=== PATIENT | male | born 1985 | race Caucasian/White ===

== ENCOUNTER → 2019-02-16 | Emergency (ER) | payer BC ==
[~2019-02-16] VITALS: Ht 172.7 cm; Wt 129.0 kg
[~2019-02-16] MED LIST: ALBU8HFA PO; AZIT250T PO; CEPH-572 PO; CYCL-1 PO; FLO0.4C PO; HYDR-3972 PO; LIDOcaine 1% 30ml preserv. free vial IJ ONE; NO HOME MEDS; ONDA4TAB6 PO; POLOS OP; TAMS0.4C32; TETanus/Pertussis (Acell)/Diphther VAC/PF (Tdap-Adult) 0.5ml syringe IM ONE; TRAM50TA2 PO
[2019-02-16 09:24] VITALS: BP 158/90
== END | disposition home or self-care (01) ==
LOC: ER 09:00
DX: S61.211A Laceration without foreign body of left index finger without damage to nail, initial encounter (principal); K21.9 Gastro-esophageal reflux disease without esophagitis; F12.90 Cannabis use, unspecified, uncomplicated; Z87.442 Personal history of urinary calculi; Z79.899 Other long term (current) drug therapy; W27.8XXA Contact with other nonpowered hand tool, initial encounter; Y93.89 Activity, other specified; Y92.89 Other specified places as the place of occurrence of the external cause; Y99.8 Other external cause status
CPT/HCPCS: 29130; 73140; 90471; 90715; 99283; J3490

== ENCOUNTER 2019-07-29 19:49 | Emergency (ER) | payer BC ==
[~2019-07-29] VITALS: Ht 167.6 cm; Wt 103.4 kg
[~2019-07-29 19:49] MED LIST changes: -CEPH-572 PO; -LIDOcaine 1% 30ml preserv. free vial IJ ONE; -TETanus/Pertussis (Acell)/Diphther VAC/PF (Tdap-Adult) 0.5ml syringe IM ONE; -TRAM50TA2 PO
[2019-07-29 19:56] VITALS: BP 170/102
[2019-07-29] MEDS ORDERED: morphine 4 MG/ML inj SYRINge IV PRN (20:20)
[2019-07-29] MEDS ORDERED: normal saline 1000ML IV soln IVB ONE (20:20)
[2019-07-29] MEDS ORDERED: ondansetron/PF 4mg/2ml inj IV ONE (20:20)
[2019-07-29] MEDS ORDERED: ketorolac trometh. 30mg/ml inj. IV ONE (20:20)
[2019-07-29 20:33] LABS: COLOR,URINE YELLOW (Yellow); GLUCOSE, URINE NEGATIVE (Neg); KETONES,URINE NEGATIVE (Neg); LEUKOCYTE ESTERASE ,URINE NEGATIVE (Neg); NITRITES, URINE NEGATIVE (Neg); OCCULT BLOOD,URINE LARGE (Neg); PH,URINE 8.5 (4.8-8.0); PROTEIN,URINE TRACE mg/dl (Neg); UROBILINOGEN,URINE 0.2 E.U/dL (0.2-1.0)
[2019-07-29 20:34] LABS: CLARITY,URINE SLIGHTLY CLOUDY (Clear); UA COLLECTION TYPE CLN CATCH MIDSTREAM
[2019-07-29 20:41] LABS: BASOPHILS # (AUTO) 0.1 X10'3 (0-0.2); BASOPHILS % (AUTO) 0.9 % (0-1); EOSINOPHILS # (AUTO) 0.2 X10'3 (0-0.9); EOSINOPHILS % (AUTO) 1.2 % (0-6); HEMOGLOBIN 13.7 g/dl (14.0-17.9); LYMPHOCYTES # (AUTO) 3.5 X10'3 (1.1-4.8); MEAN CORPUSCULAR HEMOGLOBIN 23.8 PG (27.0-31.0); MEAN CORPUSCULAR HGB CONC 32.6 g/dL (33.0-36.5); MEAN CORPUSCULAR VOLUME 73.1 FL (78-98); MEAN PLATELET VOLUME 7.9 FL (7.4-10.4); MONOCYTES # (AUTO) 0.9 X10'3 (0-0.9); MONOCYTES % (AUTO) 7.3 % (2-12); NEUTROPHILS # (AUTO) 7.9 X10'3 (1.8-7.7); NEUTROPHILS % (AUTO) 62.6 % (42-75); PLATELET COUNT 289 X10'3 (140-440); RED BLOOD COUNT 5.74 X10'6 (4.70-6.10); RED CELL DISTRIBUTION WIDTH 14.6 % (11.5-14.5); WHITE BLOOD COUNT 12.6 X10'3 (4.5-11.0)
[2019-07-29 20:43] LABS: BACTERIA,URINE NONE SEEN /HPF (Neg); RBC,URINE 20-50 /HPF (0-2); WBC,URINE 0-4 /HPF (0-4)
[2019-07-29 20:44] LABS: ALANINE AMINOTRANSFERASE 45 U/L (12-78); ALBUMIN 3.6 G/DL (3.4-5.0); ALBUMIN/GLOBULIN RATIO 1.1 (1.1-1.5); ALKALINE PHOSPHATASE 65 IU/L (46-116); ANION GAP 9 (8-16); ASPARTATE AMINO TRANSFERASE 20 U/L (10-37); BILIRUBIN,TOTAL 0.6 MG/DL (0.1-1.0); BLOOD UREA NITROGEN 13 MG/DL (7-18); BUN/CREATININE RATIO 9.9 (5.4-32.0); CALCIUM 8.6 MG/DL (8.5-10.1); CHLORIDE 106 MMOL/L (99-107); CREATININE 1.31 MG/DL (0.60-1.10); GLUCOSE 123 MG/DL (70-104); LIPASE 102 U/L (73-393); POTASSIUM 3.8 MMOL/L (3.5-5.1); SODIUM 139 MMOL/L (135-145); TOTAL CARBON DIOXIDE 23.6 MMOL/L (24-32); TOTAL PROTEIN 6.9 G/DL (6.4-8.2); eGFR 63 ML/MIN
[2019-07-29 20:44] LABS: MUCUS STRANDS MODERATE /LPF (Neg); SQUAMOUS EPITHELIAL CELL,UR NONE SEEN /LPF (FEW)
[2019-07-29] MEDS ORDERED: ONDA4TAB6 PO (22:46)
[2019-07-29] MEDS ORDERED: HYDR-4353 PO (22:46)
[2019-07-29] MEDS ORDERED: IBUP-1986 PO (22:47)
[2019-07-29] MEDS ORDERED: HYDROcodone/acetaminophen 10/325mg tab PO ONE (22:50)
[2019-07-29] MEDS ORDERED: sucralfate 1gm/10ml UD suspension PO STA (22:53)
[2019-07-29] MEDS ORDERED: mag hydrox/Alum hydrox/simeth 30ml oral suspension PO ONE (22:55)
[2019-07-29] MEDS ORDERED: LIDOcaine Viscous 15ml cup PO ONE (22:55)
== END 2019-07-29 23:11 | disposition home or self-care (01) ==
LOC: ER 19:50
DX: N13.2 Hydronephrosis with renal and ureteral calculous obstruction (principal); R42 Dizziness and giddiness; R19.7 Diarrhea, unspecified; K21.9 Gastro-esophageal reflux disease without esophagitis; F12.90 Cannabis use, unspecified, uncomplicated; R79.1 Abnormal coagulation profile; F10.99 Alcohol use, unspecified with unspecified alcohol-induced disorder; Z79.899 Other long term (current) drug therapy; Y90.9 Presence of alcohol in blood, level not specified
CPT/HCPCS: 36415; 74176; 80053; 81001; 83690; 85025; 85610; 96361; 96374; 96375; 99284; J1885; J2270; J2405; J7030